=== PATIENT | male | born 1985 | race Caucasian/White ===

== ENCOUNTER 2019-01-20 08:15 | Emergency (ER) | payer BC ==
[~2019-01-20] VITALS: Ht 182.9 cm; Wt 117.9 kg
[2019-01-20] MEDS ORDERED: ONDANSETRON ODT8 MG PO (12:53)
[2019-01-20] MEDS ORDERED: REGLAN10 MG PO (12:53)
--- NOTE | 2019-01-20 14:05 | EKG ---
[facility] [address] [facility] [address] [place] [address] Signed Normal sinus rhythm Normal ECG No previous ECGs available Confirmed by REYES PAYNE MD ([id number]) on 01/20/2019 2:05:21 PM Electronically Signed By: REYES PAYNE MD 01/20/19 1405 PATIENT NAME: NANCY MAI Electrocardiogram DATE OF : 81 PHYSICIAN: REYES PAYNE MD REPORT #: [id number] REPORT IS CONFIDENTIAL AND NOT TO BE RELEASED WITHOUT AUTHORIZATION
--- NOTE | 2019-01-20 14:06 | EKG ---
[facility] [address] [place] [address] Signed Normal sinus rhythm with sinus arrhythmia Normal ECG When compared with ECG of 20-JAN-2019 08:22, (Unconfirmed) No significant change was found Confirmed by REYES PAYNE MD ([id number]) on 01/20/2019 2:06:19 PM Electronically Signed By: REYES PAYNE MD 01/20/19 1406 PATIENT NAME: NANCY MAI Electrocardiogram DATE OF : 81 PHYSICIAN: REYES PAYNE MD REPORT #: [id number] REPORT IS CONFIDENTIAL AND NOT TO BE RELEASED WITHOUT AUTHORIZATION
== END 2019-01-20 13:03 | disposition home or self-care (01) ==
LOC: ED 08:15
DX: R07.89 Other chest pain (principal); R51 Headache
CPT/HCPCS: 70496; 70498; 71045; 80053; 83735; 84484; 85025; 93005; 93010; 99285-25; J1885; J2270; J2405; J2765; J7030; Q9967

== ENCOUNTER 2019-07-30 17:35 | Emergency (ER) | payer BC ==
[~2019-07-30] VITALS: Ht 182.9 cm; Wt 122.5 kg
[~2019-07-30 17:35] MED LIST: ONDANSETRON ODT8 MG PO; REGLAN10 MG PO
[2019-07-30] MEDS ORDERED: GUAIFEN-CODEINE10 ML PO (20:37)
== END 2019-07-30 21:13 | disposition home or self-care (01) ==
LOC: ED 17:35
DX: J12.9 Viral pneumonia, unspecified (principal); I10 Essential (primary) hypertension; Z79.899 Other long term (current) drug therapy
CPT/HCPCS: 71045; 87502; 99283-25